=== PATIENT | female | born 1960 | race African-American/Black ===

== ENCOUNTER 2021-07-28 15:12 | Inpatient (IN) ==
[2021-07-28] MEDS ORDERED: SODIUM CHLORIDE 0.9% 1,000 ML IV STA (16:10)
[2021-07-28] MEDS ORDERED: ONDANSETRON 4 MG/2 ML VIAL IV ONE (16:12)
[2021-07-28 16:20] LABS: Hematocrit 34.2 VOL% (35.7-47.0); Hemoglobin 10.5 GM/DL (12.0-16.0); Immature Granulocytes % 0.3 %; Immature Granulocytes Absolute 0.01 #; Lymphocytes # 2.4 10*3/uL (1.4-4.0); Lymphocytes % 68.4 % (21.3-54.2); Mean Corpuscular HGB Conc 30.7 GM/DL (32-36); Mean Corpuscular Volume 78.1 FL (87-102); Mean Platelet Volume 10.1 FL (9.6-12.0); Monocytes % 16.5 % (1.7-12.7); Neutrophils % 14.8 % (38.7-73.9); Red Blood Count 4.38 MC/CUMM (3.8-5.5); Red Cell Distribution Width 17.7 % (9.3-17.3); White Blood Count 3.5 T/CUMM (4-12)
[2021-07-28 16:24] LABS: Platelet Count 1282 T/CUMM (130-400)
[2021-07-28 16:36] LABS: Albumin 1.9 G/DL (3.4-5.0); Bilirubin,Total 0.4 MG/DL (0.20-1.00); Calcium 10.6 MG/DL (8.5-10.1); Osmolality,Calculated 261.8 MOS/KG (273-304); Potassium 4.7 MMOL/L (3.5-5.1); Total Protein 10.8 G/DL (6.4-8.2)
[2021-07-28 16:42] LABS: Lymphocytes 77 % (20-55); Segmented Neutrophils 13 % (50-85); Total Cells Counted 100
[2021-07-28 16:46] LABS: INR 1.2; PT Patient Result 13.5 SECS (10.5-12.0)
[2021-07-28] MEDS ORDERED: SODIUM CHLORIDE 0.9% 500 ML IV STA (16:50)
[2021-07-28 17:21] LABS: Anisocytosis 1+; Atypical Lymphocytes 2+; Hypochromia 1+; Macrocytosis Slight; Microcytosis 1+; Platelet Estimate Increased; Polychromasia Few
[2021-07-28] MEDS ORDERED: VANCOMYCIN INJ 750 MG in SODIUM CHLORIDE 0.9% 250 ML IV ONE (17:30)
[2021-07-28] MEDS ORDERED: LEVOFLOXACIN INJ 750 MG/150 ML PREMIX IV ONE (17:30)
[2021-07-28] MEDS ORDERED: ACETAMINOPHEN 325 MG TABLET PO PRN (18:16)
[2021-07-28] MEDS ORDERED: hydrALAZINE 20 MG/1 ML VIAL IV PRN (18:16)
[2021-07-28] MEDS ORDERED: DEXTROSE 10% 250 ML BAG IV PRN (18:16)
[2021-07-28] MEDS ORDERED: PROMETHAZINE 25 MG/1 ML VIAL IM PRN (18:16)
[2021-07-28] MEDS ORDERED: GLUCAGON 1 MG VIAL IM PRN (18:16)
[2021-07-28] MEDS ORDERED: diphenhydrAMINE CAP 25 MG CAPSULE PO PRN (18:16)
[2021-07-28] MEDS ORDERED: guaiFENesin/DM ER 600-30 MG TABLET PO PRN (18:16)
[2021-07-28] MEDS ORDERED: NICOTINE 21 MG/24 HR PATCH TRANSDERM PRN (18:16)
[2021-07-28] MEDS ORDERED: ENOXAPARIN 60 MG/0.6 ML SYRINGE SUBCUT STA (18:19)
[2021-07-28] MEDS: SODIUM CHLORIDE 0.9% 1,000 ML IV SCH (18:30)
[2021-07-28] MEDS ORDERED: HEPARIN 5,000 UNIT/1 ML VIAL SUBCUT SCH (18:30)
[2021-07-28] MEDS ORDERED: VANCOMYCIN INJ 1,250 MG in SODIUM CHLORIDE 0.9% 250 ML IV ONE (20:00)
[2021-07-29 04:45] LABS: Basophils % 0.3 % (0.0-0.8); Eosinophils % 0.3 % (0.00-10.9); Hematocrit 26.5 VOL% (35.7-47.0); Immature Granulocytes % 0.9 %; Immature Granulocytes Absolute 0.03 #; Lymphocytes # 2.2 10*3/uL (1.4-4.0); Lymphocytes % 66.6 % (21.3-54.2); Mean Corpuscular HGB Conc 29.8 GM/DL (32-36); Mean Corpuscular Volume 81.3 FL (87-102); Mean Platelet Volume 9.6 FL (9.6-12.0); Monocytes % 19.9 % (1.7-12.7); Red Cell Distribution Width 17.3 % (9.3-17.3); White Blood Count 3.3 T/CUMM (4-12)
[2021-07-29 04:48] LABS: Red Blood Count 3.26 MC/CUMM (3.8-5.5)
[2021-07-29 04:49] LABS: Hemoglobin 7.9 GM/DL (12.0-16.0)
[2021-07-29 04:51] LABS: Platelet Count 1218 T/CUMM (130-400)
[2021-07-29] MEDS: SODIUM CHLORIDE 0.9% 1,000 ML IV SCH ×2 (05:00→18:06)
[2021-07-29 05:09] LABS: Hypochromia 1+; Lymphocytes 67 % (20-55); Microcytosis 1+; Platelet Estimate Increased; Segmented Neutrophils 12 % (50-85); Total Cells Counted 100
[2021-07-29 05:10] LABS: Atypical Lymphocytes Few
[2021-07-29 05:19] LABS: Calcium 8.6 MG/DL (8.5-10.1); Osmolality,Calculated 271.5 MOS/KG (273-304); Potassium 3.7 MMOL/L (3.5-5.1)
[2021-07-29 05:38] LABS: Amorphous Crystals,Urine Few /HPF (Few); Mucus,Urine Occasional /LPF (Occasional); Squamous Epithelial Cell,Urine Occasional /HPF (0-10)
[2021-07-29 05:39] LABS: Bilirubin,Urine Negative (Negative); Blood, Urine Trace mg/dL (Negative); Glucose,Urine (UA) Negative (Negative); Ketones,Urine Negative (Negative); Nitrite,Urine Negative (Negative); Protein,Urine 100 MG/DL; Urine Appearance Slightly Cloudy (Clear); Urine Color Yellow (Yellow); Urine Specific Gravity > 1.030 (1.001-1.035); Urine Urobilinogen 0.2 EU/DL (<2.0)
[2021-07-29] MEDS: PANTOPRAZOLE 40 MG TABLET PO SCH (11:07)
[2021-07-29] MEDS: BISACODYL 5 MG TABLET PO SCH (11:07)
[2021-07-29] MEDS ORDERED: CEFEPIME 1,000 MG VIAL IM SCH ×2 (15:00→16:30)
[2021-07-29 15:44] LABS: Hematocrit 25.9 VOL% (35.7-47.0); Hemoglobin 7.7 GM/DL (12.0-16.0)
[2021-07-29] MEDS: INSULIN LISPRO 100 UNIT/ML SUBCUT SCH ×2 (17:43→21:15)
[2021-07-29] MEDS: CEFEPIME 1,000 MG in SODIUM CHLORIDE 0.9% 100 ML IV SCH (18:03)
[2021-07-29] MEDS: FILGRASTIM-SNDZ 480 MCG/0.8 ML SYRINGE SUBCUT SCH (18:06)
[2021-07-29 20:26] LABS: Hemoglobin 7.6 GM/DL (12.0-16.0)
[2021-07-29] MEDS: ZALEPLON 5 MG CAPSULE PO PRN (21:03)
[2021-07-30] MEDS: CEFEPIME 1,000 MG in SODIUM CHLORIDE 0.9% 100 ML IV SCH ×2 (05:10→18:58)
[2021-07-30 05:12] LABS: Basophils % 0.3 % (0.0-0.8); Eosinophils % 0.5 % (0.00-10.9); Hematocrit 25.5 VOL% (35.7-47.0); Hemoglobin 7.5 GM/DL (12.0-16.0); Immature Granulocytes % 0.5 %; Immature Granulocytes Absolute 0.02 #; Lymphocytes % 53.6 % (21.3-54.2); Mean Corpuscular HGB Conc 29.4 GM/DL (32-36); Mean Corpuscular Volume 81.2 FL (87-102); Mean Platelet Volume 9.3 FL (9.6-12.0); Monocytes % 16.6 % (1.7-12.7); Neutrophils % 28.5 % (38.7-73.9); Red Blood Count 3.14 MC/CUMM (3.8-5.5); Red Cell Distribution Width 17.7 % (9.3-17.3); White Blood Count 3.8 T/CUMM (4-12)
[2021-07-30 05:38] LABS: Albumin 1.2 G/DL (3.4-5.0); Bilirubin,Total 0.5 MG/DL (0.20-1.00); Calcium 8.7 MG/DL (8.5-10.1); Platelet Count 1307 T/CUMM (130-400); Thyroid Stimulating Hormone 0.984 uIU/ml (0.358-3.74); Total Protein 7.6 G/DL (6.4-8.2)
[2021-07-30 05:40] LABS: Hypochromia 2+; Lymphocytes 55 % (20-55); Platelet Estimate Increased; Segmented Neutrophils 28 % (50-85); Total Cells Counted 100
[2021-07-30 05:41] LABS: Atypical Lymphocytes Few; Microcytosis 1+
[2021-07-30] MEDS: INSULIN LISPRO 100 UNIT/ML SUBCUT SCH ×4 (08:53→20:53)
[2021-07-30] MEDS ORDERED: VANCOMYCIN INJ 500 MG in SODIUM CHLORIDE 0.9% 100 ML IV SCH (09:00)
[2021-07-30] MEDS ORDERED: LEVOFLOXACIN INJ 500 MG/100 ML PREMIX IV SCH (09:00)
[2021-07-30] MEDS: BISACODYL 5 MG TABLET PO SCH (11:31)
[2021-07-30] MEDS: ASPIRIN EC 81 MG TABLET PO SCH (11:31)
[2021-07-30] MEDS: PANTOPRAZOLE 40 MG TABLET PO SCH (11:31)
[2021-07-30] MEDS: FILGRASTIM-SNDZ 480 MCG/0.8 ML SYRINGE SUBCUT SCH (11:32)
[2021-07-30] MEDS: ENOXAPARIN 30 MG/0.3 ML SYRINGE SUBCUT SCH (11:34)
[2021-07-30] MEDS: SODIUM CHLORIDE 0.9% 1,000 ML IV SCH ×2 (16:49→19:06)
[2021-07-30] MEDS: POLYETHYLENE GLYCOL POWDER 17 GM PACK PO SCH (20:50)
[2021-07-30] MEDS: DOCUSATE SODIUM 100 MG CAPSULE PO SCH (20:51)
[2021-07-30] MEDS: ZALEPLON 5 MG CAPSULE PO PRN (20:51)
[2021-07-31] MEDS: SODIUM CHLORIDE 0.9% 1,000 ML IV SCH ×4 (01:27→20:08)
[2021-07-31] MEDS: CEFEPIME 1,000 MG in SODIUM CHLORIDE 0.9% 100 ML IV SCH ×2 (05:03→18:07)
[2021-07-31 05:07] LABS: Basophils % 0.5 % (0.0-0.8); Eosinophils % 0.3 % (0.00-10.9); Hematocrit 27.5 VOL% (35.7-47.0); Immature Granulocytes % 4.4 %; Immature Granulocytes Absolute 0.25 #; Lymphocytes # 2.3 10*3/uL (1.4-4.0); Lymphocytes % 40.7 % (21.3-54.2); Mean Corpuscular HGB Conc 29.1 GM/DL (32-36); Mean Corpuscular Volume 82.1 FL (87-102); Mean Platelet Volume 9.2 FL (9.6-12.0); Monocytes % 13.5 % (1.7-12.7); Neutrophils % 40.6 % (38.7-73.9); Red Blood Count 3.35 MC/CUMM (3.8-5.5); Red Cell Distribution Width 18.2 % (9.3-17.3); White Blood Count 5.7 T/CUMM (4-12)
[2021-07-31 05:22] LABS: Platelet Count 1509 T/CUMM (130-400)
[2021-07-31 05:27] LABS: Atypical Lymphocytes Few; Band Neutrophils 4 % (0-10); Eosinophils 2 % (0-10); Hypochromia 1+; Lymphocytes 37 % (20-55); Microcytosis 1+; Platelet Estimate Increased; Segmented Neutrophils 51 % (50-85); Total Cells Counted 100
[2021-07-31 05:33] LABS: Alanine Aminotransferase 34 U/L (13-56); Albumin 1.2 G/DL (3.4-5.0); Alkaline Phosphatase 224 U/L (45-117); Aspartate Amino Transferase 27 U/L (0-37); Bilirubin,Total < 0.39 MG/DL (0.20-1.00); Blood Urea Nitrogen 33 MG/DL (7-18); Calcium 8.8 MG/DL (8.5-10.1); Carbon Dioxide 18 MMOL/L (21-32); Estimated Glom Filtration Rate 32 ML/MIN; Glucose 64 MG/DL (74-106); Osmolality,Calculated 274.1 MOS/KG (273-304); Potassium 3.5 MMOL/L (3.5-5.1); Sodium 135 MMOL/L (136-145); Total Protein 7.8 G/DL (6.4-8.2)
[2021-07-31] MEDS: ONDANSETRON 4 MG/2 ML VIAL IV PRN (06:22)
[2021-07-31] MEDS ORDERED: MAGNESIUM SULF RIDER 2 GM/50 ML PREMIX IV ONE (07:06)
[2021-07-31] MEDS ORDERED: FAMOTIDINE 20 MG/2 ML VIAL IV ONE (09:12)
[2021-07-31] MEDS ORDERED: diphenhydrAMINE 50 MG/1 ML VIAL IV ONE (09:12)
[2021-07-31] MEDS ORDERED: DEXAMETHASONE INJ 20 MG in SODIUM CHLORIDE 0.9% 50 ML IV ONE (09:12)
[2021-07-31] MEDS ORDERED: GRANISETRON 1 MG/1 ML VIAL IV SCH (09:30)
[2021-07-31] MEDS: SODIUM BICARBONATE 650 MG TABLET PO SCH ×3 (09:49→20:23)
[2021-07-31] MEDS: ASPIRIN EC 81 MG TABLET PO SCH (09:50)
[2021-07-31] MEDS: DOCUSATE SODIUM 100 MG CAPSULE PO SCH ×2 (09:50→20:23)
[2021-07-31] MEDS: PANTOPRAZOLE 40 MG TABLET PO SCH (09:50)
[2021-07-31] MEDS: BISACODYL 5 MG TABLET PO SCH (09:51)
[2021-07-31] MEDS: POLYETHYLENE GLYCOL POWDER 17 GM PACK PO SCH ×2 (09:51→20:23)
[2021-07-31] MEDS: LINACLOTIDE 145 MCG CAPSULE PO SCH (09:51)
[2021-07-31] MEDS: ENOXAPARIN 30 MG/0.3 ML SYRINGE SUBCUT SCH (09:53)
[2021-07-31] MEDS: FILGRASTIM-SNDZ 480 MCG/0.8 ML SYRINGE SUBCUT SCH (09:53)
[2021-07-31] MEDS ORDERED: PACLITAXEL IV ONE (11:00)
[2021-07-31] MEDS ORDERED: CARBOPLATIN IV ONE (11:00)
[2021-07-31] MEDS: INSULIN LISPRO 100 UNIT/ML SUBCUT SCH ×4 (11:00→20:23)
[2021-07-31] MEDS ORDERED: SODIUM CHLORIDE 0.9% IV ONE ×2 (11:00)
[2021-07-31 12:36] LABS: INR 1.3; PT Patient Result 13.9 SECS (10.5-12.0)
[2021-07-31] MEDS ORDERED: ALUMINUM/MAGNES/SIMETH MAX STR 30 ML UDCUP PO PRN (16:34)
[2021-07-31] MEDS ORDERED: ALUMINUM/MAGNES/SIMETH MAX STR 30 ML UDCUP PO ONE (17:00)
[2021-07-31] MEDS: ZALEPLON 5 MG CAPSULE PO PRN (23:28)
[2021-08-01] MEDS: SODIUM CHLORIDE 0.9% 1,000 ML IV SCH ×3 (02:07→16:48)
[2021-08-01] MEDS: CEFEPIME 1,000 MG in SODIUM CHLORIDE 0.9% 100 ML IV SCH ×2 (04:59→16:33)
[2021-08-01 05:20] LABS: Basophils # 0.2 10*3/uL (0.0-0.2); Basophils % 1.2 % (0.0-0.8); Hematocrit 25.9 VOL% (35.7-47.0); Hemoglobin 7.8 GM/DL (12.0-16.0); Immature Granulocytes % 6.1 %; Immature Granulocytes Absolute 0.75 #; Lymphocytes # 1.9 10*3/uL (1.4-4.0); Lymphocytes % 15.2 % (21.3-54.2); Mean Corpuscular HGB Conc 30.1 GM/DL (32-36); Mean Corpuscular Volume 78.7 FL (87-102); Mean Platelet Volume 9.1 FL (9.6-12.0); Monocytes % 8.9 % (1.7-12.7); NRBC # 0.06 10*3/uL; Neutrophils % 68.6 % (38.7-73.9); Red Blood Count 3.29 MC/CUMM (3.8-5.5); Red Cell Distribution Width 18.7 % (9.3-17.3); White Blood Count 12.2 T/CUMM (4-12)
[2021-08-01 05:32] LABS: Platelet Count 1563 T/CUMM (130-400)
[2021-08-01 05:44] LABS: Albumin 1.3 G/DL (3.4-5.0); Bilirubin,Total 0.5 MG/DL (0.20-1.00); Calcium 8.3 MG/DL (8.5-10.1); Osmolality,Calculated 280.7 MOS/KG (273-304); Potassium 3.7 MMOL/L (3.5-5.1); Total Protein 8.1 G/DL (6.4-8.2)
[2021-08-01 06:06] LABS: Atypical Lymphocytes Few; Band Neutrophils 4 % (0-10); Hypochromia 1+; Lymphocytes 14 % (20-55); Microcytosis 1+; Myelocytes 1 %; Nucleated Red Blood Cells 1 (0-5); Platelet Estimate Increased; Segmented Neutrophils 72 % (50-85); Total Cells Counted 100
[2021-08-01] MEDS: INSULIN LISPRO 100 UNIT/ML SUBCUT SCH ×4 (08:17→19:59)
[2021-08-01] MEDS: POLYETHYLENE GLYCOL POWDER 17 GM PACK PO SCH ×2 (08:24→20:48)
[2021-08-01] MEDS: PANTOPRAZOLE 40 MG TABLET PO SCH (08:25)
[2021-08-01] MEDS: SODIUM BICARBONATE 650 MG TABLET PO SCH ×3 (08:25→20:47)
[2021-08-01] MEDS: LINACLOTIDE 145 MCG CAPSULE PO SCH (08:25)
[2021-08-01] MEDS: ASPIRIN EC 81 MG TABLET PO SCH (08:30)
[2021-08-01] MEDS: DOCUSATE SODIUM 100 MG CAPSULE PO SCH ×2 (08:30→20:47)
[2021-08-01] MEDS: ENOXAPARIN 30 MG/0.3 ML SYRINGE SUBCUT SCH (08:31)
[2021-08-01] MEDS: BISACODYL 5 MG TABLET PO SCH (08:31)
[2021-08-01] MEDS ORDERED: FERRIC GLUCONATE COMPLEX 125 MG in SODIUM CHLORIDE 0.9% 100 ML IV ONE (09:00)
[2021-08-02] MEDS: SODIUM CHLORIDE 0.9% 1,000 ML IV SCH (02:49)
[2021-08-02 04:17] LABS: Basophils # 0.1 10*3/uL (0.0-0.2); Basophils % 0.4 % (0.0-0.8); Eosinophils % 0.1 % (0.00-10.9); Hematocrit 22.4 VOL% (35.7-47.0); Hemoglobin 6.8 GM/DL (12.0-16.0); Immature Granulocytes Absolute 0.73 #; Lymphocytes # 2.2 10*3/uL (1.4-4.0); Lymphocytes % 18.2 % (21.3-54.2); Mean Corpuscular HGB Conc 30.4 GM/DL (32-36); Mean Corpuscular Volume 79.7 FL (87-102); Mean Platelet Volume 9.4 FL (9.6-12.0); Monocytes % 8.8 % (1.7-12.7); NRBC # 0.05 10*3/uL; Neutrophils % 66.5 % (38.7-73.9); Red Blood Count 2.81 MC/CUMM (3.8-5.5); White Blood Count 12.1 T/CUMM (4-12)
[2021-08-02 04:23] LABS: Platelet Count 1355 T/CUMM (130-400)
[2021-08-02 04:39] LABS: Alanine Aminotransferase 26 U/L (13-56); Albumin 0.9 G/DL (3.4-5.0); Alkaline Phosphatase 206 U/L (45-117); Aspartate Amino Transferase 30 U/L (0-37); Bilirubin,Total < 0.39 MG/DL (0.20-1.00); Blood Urea Nitrogen 22 MG/DL (7-18); Calcium 7.4 MG/DL (8.5-10.1); Carbon Dioxide 21 MMOL/L (21-32); Estimated Glom Filtration Rate 53 ML/MIN; Glucose 97 MG/DL (74-106); Osmolality,Calculated 292.6 MOS/KG (273-304); Potassium 2.9 MMOL/L (3.5-5.1); Sodium 146 MMOL/L (136-145)
[2021-08-02 04:50] LABS: Band Neutrophils 2 % (0-10); Lymphocytes 25 % (20-55); Platelet Estimate Increased; Segmented Neutrophils 68 % (50-85); Total Cells Counted 100
[2021-08-02 04:51] LABS: Atypical Lymphocytes Few; Hypochromia 2+; Microcytosis 1+
[2021-08-02] MEDS: CEFEPIME 1,000 MG in SODIUM CHLORIDE 0.9% 100 ML IV SCH ×2 (04:53→20:55)
[2021-08-02] MEDS ORDERED: DEXTROSE 5% 1,000 ML IV SCH (08:00)
[2021-08-02] MEDS: INSULIN LISPRO 100 UNIT/ML SUBCUT SCH ×2 (08:30→10:55)
[2021-08-02] MEDS ORDERED: SODIUM CHLORIDE 0.9% 1,000 ML IV PRN (08:37)
[2021-08-02] MEDS: DOCUSATE SODIUM 100 MG CAPSULE PO SCH ×2 (10:05→20:05)
[2021-08-02] MEDS: ASPIRIN EC 81 MG TABLET PO SCH (10:05)
[2021-08-02] MEDS: POTASSIUM CHLORIDE 20 MEQ TABLET PO SCH ×2 (10:06→10:08)
[2021-08-02] MEDS: BISACODYL 5 MG TABLET PO SCH (10:06)
[2021-08-02] MEDS: ENOXAPARIN 30 MG/0.3 ML SYRINGE SUBCUT SCH (10:07)
[2021-08-02] MEDS: POLYETHYLENE GLYCOL POWDER 17 GM PACK PO SCH ×2 (10:07→20:05)
[2021-08-02] MEDS: PANTOPRAZOLE 40 MG TABLET PO SCH (10:54)
[2021-08-02] MEDS: LINACLOTIDE 145 MCG CAPSULE PO SCH (10:55)
[2021-08-03 04:43] LABS: Basophils % 0.2 % (0.0-0.8); Eosinophils % 0.1 % (0.00-10.9); Hemoglobin 10.8 GM/DL (12.0-16.0); Immature Granulocytes % 4.4 %; Immature Granulocytes Absolute 0.77 #; Lymphocytes # 2.6 10*3/uL (1.4-4.0); Lymphocytes % 14.9 % (21.3-54.2); Mean Corpuscular HGB Conc 31.8 GM/DL (32-36); Mean Corpuscular Volume 81.9 FL (87-102); Mean Platelet Volume 9.6 FL (9.6-12.0); Monocytes % 9.4 % (1.7-12.7); NRBC # 0.04 10*3/uL; Red Blood Count 4.15 MC/CUMM (3.8-5.5); Red Cell Distribution Width 19.2 % (9.3-17.3); White Blood Count 17.7 T/CUMM (4-12)
[2021-08-03 04:56] LABS: Platelet Count 1166 T/CUMM (130-400)
[2021-08-03 05:08] LABS: Band Neutrophils 1 % (0-10); Hypochromia 1+; Lymphocytes 14 % (20-55); Metamyelocytes 1 %; Myelocytes 1 %; Segmented Neutrophils 76 % (50-85); Total Cells Counted 100
[2021-08-03 05:09] LABS: Microcytosis 1+; Ovalocytes Slight
[2021-08-03 05:14] LABS: Bilirubin,Total 0.4 MG/DL (0.20-1.00); Calcium 7.4 MG/DL (8.5-10.1); Osmolality,Calculated 281.3 MOS/KG (273-304); Potassium 2.9 MMOL/L (3.5-5.1); Total Protein 6.5 G/DL (6.4-8.2)
[2021-08-03] MEDS: ONDANSETRON 4 MG/2 ML VIAL IV PRN (05:15)
[2021-08-03] MEDS: PANTOPRAZOLE 40 MG TABLET PO SCH (08:50)
[2021-08-03] MEDS: POLYETHYLENE GLYCOL POWDER 17 GM PACK PO SCH (08:50)
[2021-08-03] MEDS: ENOXAPARIN 30 MG/0.3 ML SYRINGE SUBCUT SCH (08:50)
[2021-08-03] MEDS: ASPIRIN EC 81 MG TABLET PO SCH (08:50)
[2021-08-03] MEDS: DOCUSATE SODIUM 100 MG CAPSULE PO SCH (10:00)
[2021-08-03] MEDS: POTASSIUM CHLORIDE 20 MEQ TABLET PO SCH ×2 (10:00→11:03)
[2021-08-03] MEDS: LINACLOTIDE 145 MCG CAPSULE PO SCH (10:00)
[2021-08-03] MEDS: CEFEPIME 1,000 MG in SODIUM CHLORIDE 0.9% 100 ML IV SCH (10:01)
[2021-08-03] MEDS: BISACODYL 5 MG TABLET PO SCH (10:01)
[2021-08-03] MEDS: POTASSIUM BICARB EFFERVESCENT 20 MEQ TAB.EFF PO SCH ×2 (10:26→13:19)
[2021-08-03 12:15] VITALS: BP 112/76
== END 2021-08-03 15:20 | disposition home or self-care (01) | DRG 808 ==
LOC: N.ED 15:12 → N.EDINP 18:16 → SUATTDRO 18:16 → N.EDINP 07-29 11:45 → N.TELES 07-29 12:14
PROVIDERS: ADMIT Internal Medicine; ATTEND Hospitalist